=== PATIENT | male | born 1935 | race Caucasian/White ===

== ENCOUNTER 2017-02-12 14:29 | Inpatient (IN) | payer MEDICARE ==
[2017-02-12 14:43] VITALS: BMI 23.7
[2017-02-12] MEDS ORDERED: traMADol HCl 50 MG TAB PO PRN (15:30)
[2017-02-12] MEDS: traMADol HCl 50 MG TAB PO PRN (19:51)
[2017-02-13] MEDS: Acetaminophen 500 MG TAB PO PRN (01:06)
[2017-02-13] MEDS: Lisinopril 10 MG TAB PO SCH (09:37)
[2017-02-13] MEDS: Allopurinol 100 MG TAB PO SCH (09:37)
[2017-02-13] MEDS: Digoxin 0.25 MG TAB PO SCH (09:37)
[2017-02-13] MEDS: Clopidogrel Bisulfate 75 MG TAB PO SCH (09:37)
[2017-02-13] MEDS: Polyethylene Glycol 3350 17 GM Packet PO SCH (09:40)
[2017-02-13] MEDS: traMADol HCl 50 MG TAB PO PRN (10:01)
[2017-02-13] MEDS ORDERED: Triple Antibiotic Oint 1 GM Packet TOP PRN (13:31)
--- NOTE | 2017-02-13 21:33 | HP ---
DATE OF ADMISSION: 02/12/2017 ATTENDING: Dr. Diaz. PRIMARY CARE PHYSICIAN: Dr. Rodriguez at [facility]. HISTORY OF PRESENT ILLNESS: Mr. Rosales is an 81-year-old, very pleasant, male with significant history of hypertension, gout, CAD, paroxysmal atrial fibrillation, rheumatoid arthritis, inguinal hernia. Patient apparently lives at home and had a fall. He states that he was walking outside to fetch his dogs, stepped in a hole and fell. He denies loss of consciousness or trauma to the head. He landed on his left side and had an immediate onset of significant severe left hip pain. He was evaluated in [facility] and was found to have a left femoral neck fracture. The patient underwent left hip hemiarthroplasty on 02/10/2017, has done by Dr. Boyer, after he was cleared by Cardiology. The patient has tolerated the procedure well per report. He was recommended to continue his rehabilitation in [facility] prior to going back to home environment. Patient's overall pain was adequately controlled with current pain medication. He started ambulating with physical therapy prior to transfer to [place]. When evaluated today, patient reports that he is doing fine. He is walking with use of rolling walker. He is recommended to follow up with orthopedics in 2-3 weeks. Per notes, we can remove the parisa in [facility] on 10th post op day and donot to follow up with Dr. Graff but after 3-4 weeks. When evaluated, patient was alone in the room. No family is available at that time.No other new issues reported at this time.He was asking when is he going home. PAST MEDICAL HISTORY: Hypertension, history of atrial fibrillation, gout, arthritis, CAD, History of fall. 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 PAST SURGICAL HISTORY:. 2. Hernia repair. 3. Colonoscopy 2011. 3. Left hip arthroplasty on 02/10/17, secondary to fall at home. FAMILY HISTORY: Mother and father . He had 2 brothers and 1 sister, all apparently healthy. HABITS: He denies tobacco use. He admits to an occasional alcoholic beverages. He denies illicit drug use. SOCIAL HISTORY: The patient lives by himself. His only daughter lives nearby and visits patient on a regular basis. ALLERGIES: NKDA. REVIEW OF SYSTEMS: CONSTITUTIONAL: Patient denies fever, chills, lethargy. He reports general weakness and fatigue. HEENT: No acute visual changes or hearing changes. RESPIRATORY: No shortness of breath, sputum production, pain with breathing, cough. CARDIAC: No chest pain, pain with breathing, dyspnea on exertion, paroxysmal nocturnal dyspnea. GASTROINTESTINAL: No nausea, vomiting, abdominal pain, diarrhea, constipation, rectal bleeding. GENITOURINARY: No dysuria, hematuria, frequency, urgency. Voiding freely. MUSCULOSKELETAL: Reports intermittent arthralgia stiffness, joint stiffness and swelling, no acute flare at this time. NEURO: No focal numbness, focal weakness. PSYCHIATRIC: No depressive symptoms, anxiety or hallucinations. SKIN: Reports some skin tear in the left elbow from the recent fall. MEDICATIONS: Lisinopril 40 mg p.o. daily, allopurinol 300 mg p.o. daily, Digitek 250 mcg p.o. daily, carvedilol 6.25 mg p.o. daily, clopidogrel 75 mg p.o. daily, methotrexate 2.5 mg p.o. daily. Based on his previews clinic notes from [facility]. At this time, patient is only taking lisinopril 40 mg p.o. daily, methotrexate 20 mg p.o. every 7 days, Tramadol 50 mg p.o. q.6 hours, clopidogrel 75 mg p.o. daily, allopurinol 300 mg p.o. daily, acetaminophen 1000 mg p.o. q.6 h. daily. RECENT TESTS AND PROCEDURES: Echocardiogram on 02/08/2017. Left ventricular size is normal with EF of 55-60% , left atrium mildly dilated, mild mitral regurgitation is present severe aortic stenosis is present. The aortic valve area is 0.56 with a maximum gradient of 81 mmHg and a gradient of 30 mmHg, moderate tricuspid regurgitation as read by Dr. Amador. Chest x-ray on 02/08/2017 showed cardiomegaly with nurse caring in left lung base. Hip x-ray on 02/08/2017 left femoral neck fracture seen. Hip x-ray on 02/10/2017, showed placement of total hip prostheses in place sat in satisfactory position. No signs of fracture. PHYSICAL EXAMINATION: VITAL SIGNS: Blood pressure 130/61, temperature 99.6, O2 saturation 96% room air, RR 18, pulse 83, weight 165 pounds and 3 ounces, height 5, 10. GENERAL: The patient is awake, alert, oriented x3, not in distress. HEENT: Normocephalic, atraumatic. PERRL intact, EOM, anicteric sclerae. Oral mucosa is moist. NECK: Supple. No LAD, no JVD, no bruit. CHEST: Normal excursion, clear to auscultation bilaterally. CARDIAC: Regular rate, normal S1 and S2, positive grade 3/6 murmurs. ABDOMEN: Flat, soft, normoactive bowel sounds, nondistended, nontender. No rebound, no guarding. Negative CVA tenderness bilaterally. EXTREMITIES: No edema, no cyanosis. SKIN: Postoperative site on the left hip is intact, dry; no drainage, parisa in place, no surrounding erythema or edema. Superficial skin tear on the left elbow x2. PSYCHIATRIC: Appears calm with appropriate demeanor and affect. Oriented x3. ASSESSMENT: 1. Deconditioning. 2. Left femoral neck fracture status post fall. 3. Status post left hip hemiarthroplasty on 02/08/[address] Boyer. 4. Hypertension. 5. Paroxysmal atrial fibrillation. 6. Gout. 7. Rheumatoid arthritis. 8. shelter use of DMARD/Methotrexate. The patient is admitted to [facility] for purposes of skilled rehabilitation. PT will be consulted to gain modified independence with mobility and household ambulation with rolling walker. He is weightbearing as tolerated. OT will be consulted to gain modified independence with self care and ADL skills. The patient will be managed with p.r.n. narcotics as well as constipation management. We will continue all patient's current home medications. We will continue to monitor the patient for any medical comorbidities that may interfere with rehab progress. Staple removal on post op Day 10. Estimated length of stay 1-2 weeks. CODE STATUS: Patient reports DO NOT RESUSCITATE. Daughter will be notified. DISPOSITION: Home once rehab goal is met. ABHIJEETD
[2017-02-14] MEDS: traMADol HCl 50 MG TAB PO PRN (00:08)
[2017-02-14] MEDS: Acetaminophen 500 MG TAB PO PRN ×2 (00:10→16:20)
[2017-02-14] MEDS: Allopurinol 100 MG TAB PO SCH (08:35)
[2017-02-14] MEDS: Clopidogrel Bisulfate 75 MG TAB PO SCH (08:35)
[2017-02-14] MEDS: Polyethylene Glycol 3350 17 GM Packet PO SCH (08:35)
[2017-02-14] MEDS: Digoxin 0.25 MG TAB PO SCH (08:35)
[2017-02-14] MEDS: Lisinopril 10 MG TAB PO SCH (08:35)
[2017-02-14 18:28] LABS: ALT (SGPT) 109 U/L (0-55); AST (SGOT) 149 U/L (5-34); Albumin 3.4 g/dL (3.4-4.8); Alkaline Phosphatase 122 U/L (40-150); Anion Gap 16 mmol/L (10-20); BUN (Urea Nitrogen) 23 mg/dL (8.4-25.7); Bilirubin, Total 1.6 mg/dL (0.2-1.2); Calc. Creatinine Clearance 78 mL/min (70-130); Calcium 8.5 mg/dL (7.8-10.44); Carbon Dioxide 21 mmol/L (23-31); Chloride 105 mmol/L (98-107); Estimated GFR-MDRD Greater than 90; Globulin 2.4 g/dL (2.4-3.5); Glucose 144 mg/dL (83-110); Potassium 3.8 mmol/L (3.5-5.1); Protein, Total 5.8 g/dL (5.8-8.1); Sodium 138 mmol/L (136-145)
[2017-02-14 18:30] LABS: Blood, Urine Negative (Negative); Clarity Clear (Clear); Glucose, Urine (Dipstick) 100 mg/dL (Negative); Leukocyte Negative (Negative); Nitrite Negative (Negative); Protein, Urine (Dipstick) 30 mg/dL (Neg-Trace); Urobilinogen > or = 8.0 mg/dL (0.2-1.0)
[2017-02-14 18:36] LABS: Band 2 % (5-11); Eosinophils 2 % (0-10); Hemoglobin 11.9 g/dL (14.0-18.0); MDiff Complete? YES; Manual Diff?? YES; Mean Corpuscular HGB CONC 34.4 g/dL (32.0-36.0); Mean Corpuscular Hemoglobin 33.6 pg (27.0-31.0); Mean Corpuscular Volume 97.7 fL (80.0-94.0); Mean Platelet Volume 6.7 fL (7.4-10.4); Monocytes 3 % (0-10); Neutrophil 82 % (42-75); Platelet Count 149 thou/uL (130-400); RBC Distribution Width 15.5 % (11.5-14.5); Red Blood Cell (RBC) Count 3.56 mill/uL (4.70-6.10); White Blood Cell (WBC) Count 7.2 thou/uL (4.8-10.8)
[2017-02-14 18:37] LABS: Anisocytosis SLIGHT = 6-15 cells (100X) (0-5/hpf); Lymphocytes 11 % (21-51); PLT Morphology Comment Appears Adequate
[2017-02-14 18:38] LABS: Digoxin 0.82 ng/mL (0.8-2.0)
[2017-02-14 18:45] LABS: Bilirubin Moderate (Negative); Icto Negative (Negative)
[2017-02-14 18:46] LABS: Bacteria/HPF Rare-Few HPF (None Seen); RBC/HPF 0-3 HPF (0-3); Squamous Epithelial 0-3 HPF (0-3); WBC/HPF 0-3 HPF (0-3)
--- NOTE | 2017-02-14 19:33 | RAD ---
CHEST PA AND LATERAL: Date: 02/14/17 HISTORY: 81-year-old male with fever and cough. COMPARISON: 02/08/17. FINDINGS: Stable appearing increased linear and interstitial markings, particularly in the left base, with sai e left hemidiaphragm elevation. Mild biapical pleural thickening. Atherosclerosis of aorta. IMPRESSION: Stable chronic changes, including the left base. No acute process. Stable from prior study. POS: ASHLYN
[2017-02-15] MEDS: traMADol HCl 50 MG TAB PO PRN (03:50)
[2017-02-15 07:34] VITALS: TEMP 99.3
[2017-02-15] MEDS: Allopurinol 100 MG TAB PO SCH (08:47)
[2017-02-15] MEDS: Digoxin 0.25 MG TAB PO SCH (08:48)
[2017-02-15] MEDS: Clopidogrel Bisulfate 75 MG TAB PO SCH (08:48)
[2017-02-15] MEDS: Lisinopril 10 MG TAB PO SCH (08:48)
[2017-02-15 08:49] VITALS: BP 135/60
[2017-02-15] MEDS: Polyethylene Glycol 3350 17 GM Packet PO SCH (08:49)
[2017-02-15 17:33] LABS: HBCM Index 0.08 S/CO (0-0.79); HBSAg Index 0.27 S/CO (0-0.99); Hep A IgM AB Non-Reactive (NonReactive); Hep A IgM S/CO 0.24 S/CO (0-0.79); Hep B Surf Ag Non-Reactive S/CO (NonReactive); Hep C IgG Ab Non-Reactive (NonReactive); Hepatitis B Core IGM Abs Non-Reactive (NonReactive)
--- NOTE | 2017-02-16 21:57 | DIS ---
DATE OF ADMISSION: 02/12/2017 DATE OF DISCHARGE: 02/16/2017 ATTENDING PHYSICIAN: Yadira Diaz M.D. PRIMARY CARE PHYSICIAN: Dr. Rodriguez in [place]. REASON FOR ADMISSION: [facility] at [place] swing bed post-surgery. FINAL DIAGNOSES: 1. Deconditioning. 2. Left femoral neck fracture status post fall. 3. Status post left hip hemiarthroplasty on 02/10/[address] Boyer. 4. Elevated liver enzymes, indeterminate age . 5. Paroxysmal atrial fibrillation. 6. Hypertension 7. 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 8. Gout. 9. History of chronic alcohol use. 10. Do Not Resuscitate. MEDICATIONS: Lisinopril 40 mg p.o. daily, allopurinol 300 mg p.o. daily, Digitek 250 mcg p.o. daily, carvedilol 6.25 mg p.o. b.i.d., clopidogrel 75 mg p.o. daily, tramadol 50 mg p.o. daily, acetaminophen 1000 mg p.o. q.6h. daily. TO HOLD methotrexate 2.5 mg q. 7 days, secondry to elevated liver enzymes, until further recommendations from either PCP or Senior Backup Administrator. CONDITION ON DISCHARGE: Stable. DISPOSITION: Home. DIET: Regular. ACTIVITIES: Ad patrice, fall precautions. DISCHARGE TO HOME: Per request. The daughter was notified and concurs. The daughter picked up the patient on 02/12/2017 from [facility]. Home health prearranged prior to discharge to continue nursing home, PT, OT evaluation and medication supervision. DISCHARGE INSTRUCTIONS: 1. Follow up with Dr. Rodriguez/PCP within a week. To discuss if Methotrexate will be continued and for further evaluation of elevated liver enzymes. 2. Follow up with Dr. Amador in 3-4 weeks. 3. Follow up with Dr. Graff in 14 days. 4. Staple removal either by PCP in [address] Graff/Ortho. HISTORY OF THE PRESENT ILLNESS AND HOSPITAL COURSE: Mr. Rosales is an 81-year- old male with significant history of hypertension, gout, CAD, paroxysmal atrial fibrillation, rheumatoid arthritis, inguinal hernia, chronic alcohol use and methotrexate use. The patient apparently lives at home and had a fall at home. He was sent to the ER at [facility] in [place] and was found to have a left femoral neck fracture. The patient underwent left hip hemiarthroplasty on 02/10/2017 that was done by Dr. Boyer after he was cleared by Cardiology. Patient tolerated the procedure well and was recommended to continue his rehabilitation in [facility]. He was transferred on 02/12/2017 to [facility]. He started ambulating with physical therapy prior to transfer to [place] and continued to walk without significant issues. On day 2 of his hospital stay in [place], he was noted to have a low grade fever., Tmax of 101.1. Complete septic workup came back negative including flu swab, urine, and blood cultures.His chest xray showed no acute process. His temperature spontaneously normalized. He was then noted to have elevated liver enzymes including bilirubin by routine CMP. He admits to chronic alcohol use and nursing home methotrexate use. He was recommended to hold methotrexate that he takes q weekly, until seen by his PCP or further reevaluation. The patient voiced understanding. This was also communicated with his primary marketing content coordinator, his daughter, Beatrice Hanson. The patient was also recommended to see back his PCP within a week for staple removal. Otherwise he needs to follow up with Dr. Graff in [place] for ortho care. The patient was educated on safety precaution prevention. He is deemed to benefit further for continued physical and occupational therapy at home via home health. He agrees to have home health prearranged prior to discharge. Vital signs prior to discharge, blood pressure 135/60, temperature 99.3, pulse rate 67, respirations 20, O2 sats 97%, weight 100 pounds and 9 ounces, height 5 feet 10 inches. Time spent on this discharge 40 minutes, in examining patient, discharge planning and coordinating care. [facility]INE HOSPITALHoward
[2017-02-19] MEDS ORDERED: Methotrexate Sodium 2.5 MG TAB PO SCH (09:00)
== END 2017-02-15 16:35 | disposition home health service (06) | DRG 561 ==
LOC: MADMS 14:29
PROVIDERS: ADMIT Family Medicine; ATTEND Family Medicine
DX: Z47.1 Aftercare following joint replacement surgery (principal); I48.0 Paroxysmal atrial fibrillation; M06.9 Rheumatoid arthritis, unspecified; I08.2 Rheumatic disorders of both aortic and tricuspid valves; Z96.642 Presence of left artificial hip joint; I10 Essential (primary) hypertension; M10.9 Gout, unspecified; Z66 Do not resuscitate; Z72.89 Other problems related to lifestyle; R74.8 Abnormal levels of other serum enzymes; I25.10 Atherosclerotic heart disease of native coronary artery without angina pectoris; Z79.899 Other long term (current) drug therapy; J06.9 Acute upper respiratory infection, unspecified; S51.011A Laceration without foreign body of right elbow, initial encounter; W18.39XA Other fall on same level, initial encounter; Y92.009 Unspecified place in unspecified non-institutional (private) residence as the place of occurrence of the external cause
CPT/HCPCS: 71020; 80053; 80074; 80162; 81001; 85025; 87040; 87077; 87086; 87186; 90471; 90732; G0009; G8978-GP-CK; G8979-GP-CI

== ENCOUNTER 2017-12-06 11:40 | Outpatient (CLI) | payer MEDICARE ==
[2017-12-06 12:05] LABS: ALT (SGPT) 12 U/L (8-55); AST (SGOT) 20 U/L (5-34); Albumin 3.4 g/dL (3.4-4.8); Alkaline Phosphatase 102 U/L (40-150); Anion Gap 14 mmol/L (10-20); BUN (Urea Nitrogen) 25 mg/dL (8.4-25.7); Bilirubin, Total 0.4 mg/dL (0.2-1.2); Calc. Creatinine Clearance 0 mL/min (70-130); Calcium 8.7 mg/dL (7.8-10.44); Carbon Dioxide 25 mmol/L (23-31); Chloride 107 mmol/L (98-107); Estimated GFR-MDRD Greater than 90; Glucose 79 mg/dL (83-110); Potassium 4.3 mmol/L (3.5-5.1); Sodium 142 mmol/L (136-145); Uric Acid 5.1 mg/dL (3.5-7.2)
[2017-12-06 13:49] LABS: #Basophils 0.1 thou/uL (0.0-0.2); #Eosinphils 0.1 thou/uL (0.0-0.7); #Lymphocytes 0.9 thou/uL (1.20-3.40); #Monocytes 0.2 thou/uL (0.11-0.59); #Neutrophils 1.7 thou/uL (1.40-6.50); %Basophils 2.1 % (0.0-1.0); %Eosinophils 4.1 % (0.0-10.0); %Lymphocytes 29.7 % (21.0-51.0); %Monocytes 5.4 % (0.0-10.0); %Neutrophils 58.7 % (42.0-75.0); Hemoglobin 12.2 g/dL (14.0-18.0); Mean Corpuscular HGB CONC 31.7 g/dL (32.0-36.0); Mean Corpuscular Hemoglobin 31.9 pg (27.0-31.0); Mean Corpuscular Volume 100.7 fl (80.0-94.0); Mean Platelet Volume 5.8 fL (7.4-10.4); Platelet Count 127 thou/uL (130-400); RBC Distribution Width 16.4 % (11.5-14.5); Red Blood Cell (RBC) Count 3.83 mill/uL (4.70-6.10)
[2017-12-06 14:42] LABS: Globulin 3.2 g/dL (2.4-3.5); Protein, Total 6.6 g/dL (5.8-8.1)
== END 2017-12-06 11:41 | disposition home or self-care (01) ==
LOC: MADLAB 11:40
PROVIDERS: ATTEND General Practice
DX: I50.32 Chronic diastolic (congestive) heart failure (principal); Z79.899 Other long term (current) drug therapy
CPT/HCPCS: 36415; 80053; 84550; 85025